=== PATIENT | female | born 1970 | race Caucasian/White ===

== ENCOUNTER → 2021-05-27 16:42 | Outpatient (CLI) | payer OTHER, SELFPAY ==
[2021-05-27 17:14] LABS: Add Manual Diff / Slide Review NO; Basophils Absolute Auto 100 /uL (0-100); Basophils Percent Auto 0.9 % (0-2); Eosinophils Absolute Auto 0 /uL (0-450); Eosinophils Percent Auto 0.1 % (2-4); Lymphocytes Absolute Auto 2800 /uL (1100-4500); Lymphocytes Percent Auto 28.1 % (25-40); Mean Corpuscular HGB Conc 34.9 % (30-36); Mean Corpuscular Hemoglobin 30.9 PG (26-34); Mean Corpuscular Volume 88.5 fL (80-100); Monocytes Absolute Auto 300 /uL (0-900); Monocytes Percent Auto 3.3 % (3-14); Neutrophils Absolute Auto 6700 /uL (1500-7000); Neutrophils Percent Auto 67.6 % (50-75); Platelet Count 272 X10^3/uL (150-400); Red Blood Cell Count 4.85 X10^6/uL (4.0-5.2); Red Cell Distribution Width 12.2 % (11.6-14.8); White Blood Cell Count 9.9 X10^3/uL (4.5-11.0)
[2021-05-27 17:51] LABS: Hemoglobin A1C% w Est Avg Glu 11.4 % (4.0-6.0)
[2021-05-27 17:53] LABS: Alanine Aminotransferase 23 IU/L (<35); Albumin 4.4 g/dL (3.5-5.0); Albumin Globulin Ratio 1.4 (1.0-2.8); Alkaline Phosphatase 91 U/L (38-126); Aspartate Aminotransferase 19 IU/L (14-36); BUN Creatinine Ratio 30.6 (6-22); Bilirubin Total 0.3 mg/dL (0.2-1.3); Blood Urea Nitrogen 15 mg/dL (7-17); Calcium 9.9 mg/dL (8.4-10.2); Carbon Dioxide 22 mmol/L (22-32); Chloride 98 mmol/L (98-107); Estimated Glomerular Filt Rate > 60.0 mL/min (>60); Globulin 3.1 g/dL (1.7-4.1); Glucose 392 mg/dL (70-100); HEMOLYSIS < 15 (0-50); Potassium 4.4 mmol/L (3.4-5.1); Sodium 134 mmol/L (137-145); Total Protein 7.5 g/dL (6.3-8.2)
== END ==
PROVIDERS: PCP Physician Assistant; Referring Provider Physician Assistant; Visit Provider Physician Assistant
DX: E11.9 Type 2 diabetes mellitus without complications (principal)
CPT/HCPCS: 36415; 80053; 83036; 85025

== ENCOUNTER → 2022-12-04 18:02 | Outpatient (CLI) | payer OTHER, SELFPAY | PROVIDERS: PCP Physician Assistant; Visit Provider Physician Assistant | DX: J02.9 Acute pharyngitis, unspecified (principal) | CPT/HCPCS: 87070 ==

== ENCOUNTER 2022-12-30 18:39 | Emergency (ER) | payer OTHER, SELFPAY ==
[2022-12-30 18:47] VITALS: BP 178/88; PULSE 90; RESP 18; TEMP 36.2; O2SAT 97; BMI 28.5
--- NOTE | 2022-12-30 18:55 | DI.RAD.S_ITS ---
PROCEDURE: XR CHEST 1V INDICATIONS: chest pain TECHNIQUE: One view of the chest was acquired. COMPARISON: [facility], , CHEST 2 VIEW, 08/01/2007, 13:37. FINDINGS: Surgical changes and devices: None. Lungs and pleura: Lungs are clear. No pleural effusions or pneumothorax. Mediastinum: Mediastinal contours appear normal. Heart size is normal. Bones and chest wall: No suspicious bony lesions. Overlying soft tissues appear unremarkable. IMPRESSION: No acute cardiopulmonary abnormalities or focal airspace disease. Dictated by: Song Cassidy M.D. on 12/30/2022 at 20:39 Approved by: Song Cassidy M.D. on 12/30/2022 at 20:39
[2022-12-30 19:49] LABS: Add Manual Diff / Slide Review NO; Basophils Absolute Auto 100 /uL (0-100); Basophils Percent Auto 1.1 % (0-2); Eosinophils Absolute Auto 400 /uL (0-450); Eosinophils Percent Auto 4.1 % (2-4); Hemoglobin 15.5 g/dL (12.0-16.0); Lymphocytes Absolute Auto 3900 /uL (1100-4500); Lymphocytes Percent Auto 42.2 % (25-40); Mean Corpuscular HGB Conc 35.2 % (30-36); Mean Corpuscular Hemoglobin 31.1 PG (26-34); Mean Corpuscular Volume 88.3 fL (80-100); Monocytes Absolute Auto 500 /uL (0-900); Monocytes Percent Auto 5.8 % (3-14); Neutrophils Absolute Auto 4300 /uL (1500-7000); Neutrophils Percent Auto 46.8 % (50-75); Platelet Count 250 X10^3/uL (150-400); Red Blood Cell Count 4.99 X10^6/uL (4.0-5.2); White Blood Cell Count 9.2 X10^3/uL (4.5-11.0)
--- NOTE | 2022-12-30 20:01 | ED_ITS ---
HPI - Chest Pain General Chief Complaint: Chest Pain Stated Complaint: heart fast/sugar high diabetic/high bp x2days Time Seen by Provider: 12/30/22 19:09 Source: patient Mode of arrival: Family Vehicle Limitations: no limitations History of Present Illness HPI narrative: 52-year-old female. Has a type 2 diabetic. Not on insulin. Does have a heart murmur. Has not checked her blood sugars and at least a month. Has not a changes to her diabetes medicines recently. She states that a couple days ago she was driving home. She did have some chest discomfort. Also felt like her heart was racing. This has happened a couple times since then. At the time my evaluation she was not having symptoms. No shortness of breath. No fevers. No abdominal pain. No nausea vomiting. No change in bowel habits. Is taking all of your medications as directed. Related Data Home Medications Medication Instructions Recorded Confirmed ascorbic acid (vitamin C) 500 mg 1,000 mg PO QDAY ##0 10/30/11 12/04/22 tablet multivitamin (Multiple Vitamins 1 tab PO QDAY ##0 10/30/11 12/04/22 tablet) cetirizine 10 mg tablet 10 mg PO QDAY ##0 09/28/16 12/04/22 cholecalciferol (vitamin D3) 50 1 tab PO QDAY ##0 09/28/16 12/04/22 mcg (2,000 unit) tablet (Vitamin D3) Previous Rx's Medication Instructions Recorded metformin 500 mg tablet 500 mg PO BIDCC #60 tabs 11/28/16 (Glucophage) simvastatin 20 mg tablet 20 mg PO HS #30 tabs 11/28/16 Allergies Allergy/AdvReac Type Severity Reaction Status Date / Time No Known Allergies Allergy Uncoded 12/30/22 18:47 Review of Systems Review of Systems ROS Unobtainable: All systems reviewed & are unremarkable except as noted in HPI and below Patient History Family History Father Age: 73 [place] Grandfather Heart disease Stroke Grandmother Cancer Mother Age: 73 Ovarian cancer Sister Mental health problem Social History Smoking Status: Current every day smoker Smoking Status: Current every day smoker tobacco type: vaping alcohol intake frequency: 0-2 drinks per day Substance Use Type: does not use Exam Initial Vital Signs Initial Vital Signs: Vital Signs Temperature 97.1 F L 12/30/22 18:47 Pulse Rate 90 12/30/22 18:47 Respiratory Rate 18 12/30/22 18:47 Blood Pressure 178/88 H 12/30/22 18:47 Pulse Oximetry 97 12/30/22 18:47 Oxygen Delivery Method Room Air 12/30/22 18:47 Const General: cooperative, comfortable and No ill appearing HENMT Head: normal to inspection and normocephalic Resp Effort & Inspection: normal respiratory effort Auscultation: clear to auscultation bilaterally Cardio Rate: regular rate Rhythm: regular rhythm GI Inspection: normal to inspection and non-distended Skin General: no rashes or lesions noted Neuro General: patient alert, patient awake, patient oriented x3 and moves all extremities Cognition: normal cognition Speech: speech normal Extrem General: normal to inspection and capillary refill normal Course Orders Ordered: ED Orders 12/30/22 19:30 Complete Blood Count AUTO DIFF Stat 12/30/22 19:55 Comprehensive Metabolic Panel Stat Lipase Stat Magnesium Stat PTT Partial Thromboplastin Souleymane Stat Prothrombin Time INR Stat Troponin & CK Cardiac Panel Stat Discontinued Medications Aspirin (Aspirin 81 Mg Chew Tab) 324 mg PO NOW ONE Stop: 12/30/22 18:56 Last Admin: 12/30/22 21:26 Dose: Not Given Documented By: NGUYEN Sodium Chloride (Normal Saline 0.9%) 1,000 mls @ 1,000 mls/hr IV BOLUS ONE Stop: 12/30/22 21:18 Last Infusion: 12/30/22 22:13 Dose: 0 mls/hr Documented By: Admin: 12/30/22 20:45 Dose: 1,000 mls/hr Documented By: NGUYEN Vital Signs Vital signs: Vital Signs - 8 hr 12/30/22 21:04 12/30/22 21:30 12/30/22 22:00 Pulse Rate 70 77 68 Respiratory Rate 17 19 20 Blood Pressure Pulse Oximetry 97 97 99 Oxygen Delivery Method 12/30/22 22:33 Pulse Rate 74 Respiratory Rate 16 Blood Pressure 160/78 H Pulse Oximetry 96 Oxygen Delivery Method Room Air MDM - Chest Pain Lab Data Attestation: I reviewed the patient's lab results. 12/30/22 19:30 12/30/22 19:55 Labs: Lab Results 12/30/22 12/30/22 12/30/22 Range/Units 19:30 19:55 19:55 WBC 9.2 (4.5-11.0) X10^3/uL RBC 4.99 (4.0-5.2) X10^6/uL Hgb 15.5 (12.0-16.0) g/dL Hct 44.0 (36-46) % MCV 88.3 (80-100) fL MCH 31.1 (26-34) PG MCHC 35.2 (30-36) % RDW 12.0 (11.6-14.8) % Plt Count 250 (150-400) X10^3/uL Neut % (Auto) 46.8 L (50-75) % Lymph % (Auto) 42.2 H (25-40) % [place] % (Auto) 5.8 (3-14) % Eos % (Auto) 4.1 H (2-4) % Baso % (Auto) 1.1 (0-2) % Neut # (Auto) 4300 (3840-4761) /uL Lymph # (Auto) 3900 (3284-4052) /uL [place] # (Auto) 500 (0-900) /uL Eos # (Auto) 400 (0-450) /uL Baso # (Auto) 100 (0-100) /uL PT 10.3 (10.1-12.7) SECONDS INR 0.9 (0.9-1.3) APTT 31 (26-36) SECONDS Sodium 134 L (137-145) mmol/L Potassium 3.9 (3.4-5.1) mmol/L Chloride 97 L (98-107) mmol/L Carbon Dioxide 27 (22-32) mmol/L BUN 13 (7-17) mg/dL Creatinine 0.50 L (0.52-1.04) mg/dL Estimated GFR > 60 (>60) mL/min BUN/Creatinine Ratio 26.0 H (6-22) Glucose 318 H (70-100) mg/dL Calcium 9.2 (8.4-10.2) mg/dL Magnesium 1.7 (1.6-2.3) mg/dL Total Bilirubin 0.2 (0.2-1.3) mg/dL AST 19 (14-36) IU/L ALT 24 (<35) IU/L Alkaline Phosphatase 92 (38-126) U/L Total Creatine Kinase 45 (30-135) U/L CK-MB (CK-2) TNP CK-MB (CK-2) Rel Index TNP Troponin I < 0.012 (0.01-0.034) ng/mL Total Protein 7.4 (6.3-8.2) g/dL Albumin 4.2 (3.5-5.0) g/dL Globulin 3.2 (1.7-4.1) g/dL Albumin/Globulin Ratio 1.3 (1.0-2.8) Lipase 165 (23-300) U/L Point of Care Testing Glucose POC 271 Imaging Data Chest x-ray: Radiologist's Impression: PROCEDURE:? XR CHEST 1V ? INDICATIONS:? chest pain ? TECHNIQUE:? One view of the chest was acquired.? ? COMPARISON:? [facility], , CHEST 2 VIEW, 08/01/2007, 13:37. ? FINDINGS:? ? Surgical changes and devices:? None.? ? Lungs and pleura:? Lungs are clear.? No pleural effusions or pneumothorax.? ? Mediastinum:? Mediastinal contours appear normal.? Heart size is normal.? ? Bones and chest wall:? No suspicious bony lesions.? Overlying soft tissues appear unremarkable.? ? IMPRESSION:? No acute cardiopulmonary abnormalities or focal airspace disease. ? ECG Data Attestation: I personally reviewed and interpreted this ECG as follows: Interpretation: Sinus rhythm Ventricular rate 93 Normal axis Normal QRS Normal QTC No ST T wave changes MDM Narrative Medical decision making narrative: Workup here in the emergency department is unremarkable. She is not had any ectopy on the EKG. She was hyperglycemic but is not in DKA. This improved with fluids. Chest x-ray is unremarkable. Electrolytes are unremarkable. Had a discussion with the patient regarding this. We discussed talking with her primary doctor about the indications for a Holter monitor. We discussed the importance of her taking her blood sugar at home and then talking with her primary doctor about potentially changing some of her diabetes medicines. She was given return precautions. She expressed understanding and agreement. Discharge Plan Departure Patient Disposition: Home Clinical Impression: Palpitations, Hyperglycemia Instructions: DI for Palpitations Activity Restrictions/Additional Instructions: I do recommend that you continue to take all of your medications as directed. I also recommend that you continue to take your blood sugars at home. Keep your scheduled follow-up medical appointment. I recommend you talk with your primary doctor about the indications for a Holter monitor. Return to the emergency department for new symptoms. Prescriptions: No Action multivitamin [Multiple Vitamins] 1 EACH tablet 1 tab PO QDAY Qty: 0 ascorbic acid (vitamin C) 500 MG tablet 1,000 mg PO QDAY Qty: 0 cetirizine 10 MG tablet 10 mg PO QDAY Qty: 0 cholecalciferol (vitamin D3) [Vitamin D3] 2,000 UNIT tablet 1 tab PO QDAY Qty: 0 metformin [Glucophage] 500 MG tablet 500 mg PO BIDCC Qty: 60 3RF simvastatin 20 MG tablet 20 mg PO HS Qty: 30 2RF Referrals: Verito Grey PA-C [Primary Care Provider] - Stand Alone Forms: Patient Portal/API
[2022-12-30 20:14] LABS: INR 0.9 (0.9-1.3); Prothrombin Time 10.3 SECONDS (10.1-12.7)
[2022-12-30 20:17] LABS: Alanine Aminotransferase 24 IU/L (<35); Albumin 4.2 g/dL (3.5-5.0); Albumin Globulin Ratio 1.3 (1.0-2.8); Alkaline Phosphatase 92 U/L (38-126); Aspartate Aminotransferase 19 IU/L (14-36); Bilirubin Total 0.2 mg/dL (0.2-1.3); Blood Urea Nitrogen 13 mg/dL (7-17); Calcium 9.2 mg/dL (8.4-10.2); Carbon Dioxide 27 mmol/L (22-32); Chloride 97 mmol/L (98-107); Creatine Kinase 45 U/L (30-135); Estimated Glomerular Filt Rate > 60 mL/min (>60); Globulin 3.2 g/dL (1.7-4.1); Glucose 318 mg/dL (70-100); HEMOLYSIS < 15 (0-50); Lipase 165 U/L (23-300); Magnesium 1.7 mg/dL (1.6-2.3); Potassium 3.9 mmol/L (3.4-5.1); Sodium 134 mmol/L (137-145); Total Protein 7.4 g/dL (6.3-8.2)
[2022-12-30 20:20] LABS: PTT Partial Thromboplastin Tim 31 SECONDS (26-36)
[2022-12-30 20:29] LABS: Troponin I < 0.012 ng/mL (0.01-0.034)
--- NOTE | 2022-12-30 20:40 | PC.NURSE ---
Ambulated throughout department and oxygen sats remained above 97% on RA. Pt denied any discomfort and walked briskly.
[2022-12-30] MEDS: SODIUM CHLORIDE 0.9% 1,000 ML 1000 ML IV (20:45)
[2022-12-30 21:04] VITALS: PULSE 70; RESP 17; O2SAT 97
[2022-12-30 21:30] VITALS: PULSE 77; RESP 19; O2SAT 97
[2022-12-30 22:00] VITALS: PULSE 68; RESP 20; O2SAT 99
[2022-12-30 22:33] VITALS: BP 160/78; PULSE 74; RESP 16; O2SAT 96
== END 2022-12-30 22:35 | disposition home or self-care (01) ==
PROVIDERS: Emergency Provider Emergency Medicine; PCP Physician Assistant
DX: R00.2 Palpitations (principal); E11.65 Type 2 diabetes mellitus with hyperglycemia; Z79.84 Long term (current) use of oral hypoglycemic drugs
CPT/HCPCS: 36415; 71045; 80053; 82550; 82962; 83690; 83735; 84484; 85025; 85610; 85730; 93005; 93010; 99284

== ENCOUNTER → 2024-08-29 15:42 | Outpatient (CLI) | payer OTHER, SELFPAY ==
--- NOTE | 2024-08-29 15:43 | DI.MG.S_ITS ---
BILATERAL DIGITAL SCREENING MAMMOGRAM 3D/2D WITH CAD: 08/29/2024 Comparison is made to exams dated: 11/26/2015 mammogram, 10/25/2012 mammogram, and 11/29/2005 mammogram - [facility]. There are scattered areas of fibroglandular density (category b / 25%-50% glandular tissue). Current study was also evaluated with a Computer Aided Detection (CAD) system. No significant masses, calcifications, or other findings are seen in either breast. There has been no significant interval change. IMPRESSION: NEGATIVE There is no mammographic evidence of malignancy. A 1 year screening mammogram is recommended. Based on the Tyrer Cuzick model (a risk assessment model) the patient's lifetime risk is 5.9% and her 10 year risk is 1.7%. According to the ACR, ACS, and NCCN guidelines, an annual breast MRI exam along with mammogram is recommended if the patient's lifetime risk is 20% or greater. This exam was interpreted at Station ID: [id number]. NOTE: For mammograms, a report in lay terms will be sent to the patient. Approximately 15% of breast malignancies will not be visualized mammographically. In the management of a palpable breast mass, a negative mammogram must not discourage biopsy of a clinically suspicious lesion. Electronically Signed By: Katherine Ramos M.D., Ph.D. sincere/tonie:08/29/2024 16:08:34 letter sent: Normal Exam ACR BI-RADS Category 1: Negative
== END ==
PROVIDERS: PCP Registered Nurse; Referring Provider Registered Nurse; Visit Provider Registered Nurse
DX: Z12.31 Encounter for screening mammogram for malignant neoplasm of breast (principal)
CPT/HCPCS: 77063; 77067